=== PATIENT | female | born 1965 | race Caucasian/White ===

== ENCOUNTER 2017-07-06 22:24 | Emergency (ER) | payer OTHER ==
[2017-07-06] MEDS ORDERED: Norflex 60 MG/2 ML IM ONE (23:07)
[2017-07-06] MEDS ORDERED: TORAdol 30 mg Injection IM ONE (23:07)
[2017-07-06] MEDS ORDERED: TORAdol 30 mg Injection ONE (23:10)
[2017-07-06] MEDS ORDERED: Norflex 60 MG/2 ML ONE (23:10)
--- NOTE | 2017-07-06 23:26 | ERPHSYRPT ---
- History of Present Illness Time Seen by Provider: 07/06/17 23:20 Source: patient, family Exam Limitations: no limitations Patient Subjective Stated Complaint: Neck Pain Triage Nursing Assessment: Pt presents to the ED with complaints of neck pain with radiation down bilateral arms. Pt states hx of chronic neck pain, worsening 2 days ago. Pt states she was seen at [facility] ED yesterday for complaint, prescribed medications, and told to follow-up. Pt states she is unable to sleep due to pain. Physician History: Neck Pain for 2-3 days Pt presents to the ED with complaints of neck pain with radiation down bilateral arms. Pt states hx of chronic neck pain, worsening 2 days ago. Pt states she was seen at [facility] ED yesterday for complaint, prescribed medications, and told to follow-up. Pt states she is unable to sleep due to pain. Timing/Duration: day(s) (2-3 days) Severity: moderate Associated Symptoms: denies symptoms Allergies/Adverse Reactions: doxycycline Allergy (Verified 07/06/17 22:41) erythromycin base Allergy (Verified 07/06/17 22:41) levofloxacin Allergy (Verified 07/06/17 22:41) niacin Allergy (Verified 07/06/17 22:41) nickel Allergy (Verified 07/06/17 22:41) Penicillins Allergy (Verified 07/06/17 22:41) prednisone Allergy (Verified 07/06/17 22:41) Home Medications: Aspirin EC 325 mg [Ecotrin 325 MG] 325 mg PO DAILY 07/06/17 [History] Atorvastatin Calcium 80 mg PO QHS 07/06/17 [History] Baclofen 10 mg [Lioresal 10 mg] 10 mg PO BID 07/06/17 [History] Clopidogrel Bisulfate 75 mg [PLAVIX 75 MG Tablet] 75 mg PO DAILY 07/06/17 [History] Furosemide 20 mg [Lasix 20 mg] 20 mg PO DAILY 07/06/17 [History] Hydrochlorothiazide 12.5 mg PO DAILY 07/06/17 [History] Insulin Glargine,Hum.rec.anlog [Tamir Purdy] 300 unit SQ DAILY 07/06/17 [ History] Lisinopril 10 mg [Zestril 10 MG] 10 mg PO DAILY 07/06/17 [History] Lorazepam 0.5 mg [Ativan 0.5 MG] 0.5 mg PO BID 07/06/17 [History] Metformin HCl 500 mg [Glucophage 500 MG] 1,000 mg PO BIDWM 07/06/17 [ History] Metoprolol Tartrate 50 mg [Lopressor 50 MG] 50 mg PO BID 07/06/17 [History ] Nitroglycerin 0.4 mg Tablet [Nitrostat 0.4 MG Tablet] 0.4 mg SL Q5MIN PRN MR X 3 PRN 07/06/17 [History] Hx Tetanus, Diphtheria Vaccination/Date Given: Yes Hx Influenza Vaccination/Date Given: No Hx Pneumococcal Vaccination/Date Given: No Immunizations Up to Date: No - Review of Systems Constitutional: No Fever, No Chills Eyes: No Symptoms Ears, Nose, & Throat: No Symptoms Respiratory: No Cough, No Dyspnea Cardiac: No Chest Pain, No Edema, No Syncope Abdominal/Gastrointestinal: No Abdominal Pain, No Nausea, No Vomiting, No Diarrhea Genitourinary Symptoms: No Dysuria Musculoskeletal: Neck Pain, No Back Pain Skin: No Rash Neurological: No Dizziness, No Focal Weakness, No Sensory Changes Psychological: No Symptoms Endocrine: No Symptoms All Other Systems: Reviewed and Negative - Past Medical History Pertinent Past Medical History: Yes Neurological History: No Pertinent History ENT History: No Pertinent History Cardiac History: Angina, Coronary Artery Disease, Hypertension, Myocardial Infarction ([place]) Respiratory History: COPD Endocrine Medical History: Diabetes Type II Musculoskeletal History: No Pertinent History GI Medical History: No Pertinent History History: No Pertinent History Psycho-Social History: Depression Female Reproductive Disorders: No Pertinent History - Past Surgical History Past Surgical History: Yes Neuro Surgical History: No Pertinent History Cardiac: Cardiac Catheterization Respiratory: No Pertinent History Gastrointestinal: No Pertinent History Genitourinary: No Pertinent History Musculoskeletal: Orthopedic Surgery Female Surgical History: Hysterectomy Other Surgical History: Metal Juan Daniel in neck, femoral stents - Social History Smoking Status: Current every day smoker How long have you smoked: 40 years Exposure to second hand smoke: Yes Drug Use: none Patient Lives Alone: No - Female History Hx Now: No - Nursing Vital Signs Nursing Vital Signs: Initial Vital Signs Temperature 98.4 F 07/06/17 22:35 Pulse Rate 95 H 07/06/17 22:35 Respiratory Rate 16 07/06/17 22:35 Blood Pressure 169/91 07/06/17 22:35 O2 Sat by Pulse Oximetry 97 07/06/17 22:35 Pain Scale Pain Intensity 9 - Physical Exam General Appearance: no apparent distress, alert Eye Exam: PERRL/EOMI, eyes nml inspection Ears, Nose, Throat Exam: normal ENT inspection, TMs normal, pharynx normal, moist mucous membranes Neck Exam: normal inspection, non-tender, supple, limited range of motion Respiratory Exam: normal breath sounds, lungs clear, No respiratory distress Cardiovascular Exam: regular rate/rhythm, normal heart sounds, normal peripheral pulses Gastrointestinal/Abdomen Exam: soft, normal bowel sounds, No tenderness, No mass Back Exam: normal inspection, normal range of motion, No CVA tenderness, No vertebral tenderness Extremity Exam: normal inspection, normal range of motion, pelvis stable Neurologic Exam: alert, oriented x 3, cooperative, normal mood/affect, nml cerebellar function, nml station & gait, sensation nml, No motor deficits Skin Exam: normal color, warm, dry, No rash Lymphatic Exam: No adenopathy SpO2 Interpretation: normal SpO2: 97 Oxygen Delivery: Room Air - Course Nursing assessment & vital signs reviewed: Yes Ordered Tests: Medication Summary Discontinued Medications Generic Name Dose Route Start Last Admin Trade Name Mamta PRN Reason Stop Dose Admin Ketorolac Tromethamine 60 mg 07/06/17 23:07 07/06/17 23:13 Toradol 30 Mg Injection IM 07/06/17 23:08 60 mg STAT ONE Administration Ketorolac Tromethamine Confirm 07/06/17 23:10 Toradol 30 Mg Injection Administered 07/06/17 23:11 Dose 60 mg .ROUTE .STK-MED ONE Orphenadrine Citrate 60 mg 07/06/17 23:07 07/06/17 23:12 Norflex 60 Mg/2 Ml IM 07/06/17 23:08 60 mg STAT ONE Administration Orphenadrine Citrate Confirm 07/06/17 23:10 Norflex 60 Mg/2 Ml Administered 07/06/17 23:11 Dose 60 mg .ROUTE .STK-MED ONE - Progress Progress: improved, pain not gone completely Progress Note: 07/06/17 23:23 Patient was in [facility] yesterday at emergency room where CT of the cervical spine was done which is showing spondylolisthesis at all level of cervical spine. Those results discussed with patient and her family members. Cervical soft collar was given. Patient is advised to wear it for at least next 2-3 days. Patient was given Toradol 60 mg intramuscular and Norflex 60 mg intramuscular in emergency room, which did relieve some of the pain. Counseled pt/family regarding: diagnosis, need for follow-up, rad results - Departure Time of Disposition: 23:24 Departure Disposition: Home Clinical Impression: Cervical myofascial strain Qualifiers: Encounter type: subsequent encounter Qualified Code(s): S16.1XXD - Strain of muscle, fascia and tendon at neck level, subsequent encounter Condition: Stable Critical Care Time: No Referrals: JENNIFER BARAKAT MD [Primary Care Provider] - Instructions: Chronic Pain (DC), Neck Pain, Whiplash (DC), Spinal Fusion, Radiculopathy, Cervical Myelopathy Additional Instructions: SPRAINS/STRAINS/CONTUSIONS 1. Rest the affected area as much as possible for the next few days. 2. Apply ice to the affected area for 20-30 minutes at a time, several times a day. 3. If you receive an elastic wrap, wear it only while awake for comfort and support. Re-wrap the elastic wrap if it feels too tight or too loose. 4. If swelling is present, elevate the affected part above the level of the heart for at least 2 to 3 days. 5. Use splints, slings, or crutches as instructed. 6. Watch for severe swelling, coldness, numbness, and discoloration of the fingers and toes. See your family physician or return to the emergency department if any of these are noted. ABBEY MACIAS was seen on 07/06/17 n the Emergency Room. At that time you were treated for an emergent condition, during your visit Laboratory, Radiology and/or other procedures may have been ordered. It is very important that you follow-up with your Primary Care Physician JENNIFER BARAKAT MD within the next 24-48 hours to review your Emergency Room visit and the final results of testing that was ordered. Some test results such as Urine Cultures, Blood Cultures, and other cultures if ordered will not be finalized for 24-48 hours. If you do not have a Primary Care Provider please call the medical records department at [phone] to obtain a copy of your results or you may sign into our patient portal to obtain these results by visiting us @ [email or web address] and completing the following steps: 1. Click on the Patient Portal link 2. Click the Patient Self Enrollment Link to complete the enrollment form and entering your 3. Once the enrollment form is completed you will receive an email with a temporary ID and password at the email address you provided. 4. Next choose a user name and password. Your user name must be at least 4 characters long and your password must be at least 4 characters long. 5. Choose a security question from the list and provide your answer to the question. If you already have signed into the Health Portal you may access your Health Care Information 08/01 by the following steps: 1. Login to our website @ [email or web address] 2. Enter your original user name and password. FAQS The [facility] Portal is an online tool that contains your Lab Results, Radiology Reports, Visit History, Discharge Instructions and Health Summary Lab and Radiology Results will not be available for 72 hours on the portal. The Portal is a secure site, passwords are encryted and URLs are re-written so they cannot be copied and pasted. You and authorized family members are the only ones who can access your Portal. Also there is a timeout feature that protects your information if you leave the Portal page open. If you have technical difficulty please use the Contact Us link on the page this will allow you to submit any questions you have regarding the Portal or you may contact the Medical Record Department at [phone].
[2017-07-06 23:44] VITALS: BP 158/88; PULSE 80; O2SAT 98
== END 2017-07-06 23:53 | disposition home or self-care (01) ==
LOC: ED 22:24
DX: S16.1XXD Strain of muscle, fascia and tendon at neck level, subsequent encounter (principal); M54.2 Cervicalgia; Z79.899 Other long term (current) drug therapy; Z79.4 Long term (current) use of insulin; I25.2 Old myocardial infarction; I10 Essential (primary) hypertension; I25.10 Atherosclerotic heart disease of native coronary artery without angina pectoris; J44.9 Chronic obstructive pulmonary disease, unspecified
CPT/HCPCS: 96372; 99283; J1885; J2360; L0120